=== PATIENT | male | born 1930 | race Caucasian/White ===

== ENCOUNTER → 2017-08-05 | Outpatient (CLI) | payer OTHER ==
[~2017-08-05] MED LIST: ACTOS30 MG PO; ASPIR 8181 M1 PO; BENICAR40 MG PO; FLONASE ALLERG9.9 ML BOTH NARES; LEVOTHYROXINE50 MCG PO; LIPITOR40 MG PO; PROTONIX40 MG PO; VERAPAMIL HCL240 MG PO
[2017-08-05 12:43] LABS: TYPE OF FLUID PLEURAL
[2017-08-05 13:01] LABS: APPEARANCE SL. HAZY-YELLOW; BODY FLUID RBC'S 1000 /MM^3 (0-100); BODY FLUID WBC'S 417 /MM^3 (0-500)
[2017-08-05 13:40] LABS: BODY FLUID EOSINOPHILS 0 % (0-25); MONONUCLEAR WBC'S 97 %; POLYNUCLEAR WBC'S 3 % (0-25)
== END | disposition home or self-care (01) ==
LOC: RAD 09:04 → EDSTATUS 11:00 → RAD 11:00
PROVIDERS: Family Medicine
PROC: 0W993ZZ Drainage of Right Pleural Cavity, Percutaneous Approach (ICD-10-PCS; principal; 2017-08-05)
DX: J90 Pleural effusion, not elsewhere classified (principal); D38.1 Neoplasm of uncertain behavior of trachea, bronchus and lung
CPT/HCPCS: 76942; 87070; 87075; 87116; 87205; 87206; 88108; 88305; 89051